=== PATIENT | male | born 1980 | race Caucasian/White ===

== ENCOUNTER 2022-09-24 15:47 | Emergency (ER) | payer OTHER ==
[~2022-09-24] VITALS: Ht 172.7 cm; Wt 72.6 kg
[2022-09-24] MEDS ORDERED: CEPH500 PO (20:15)
== END 2022-09-24 20:45 | disposition home or self-care (01) ==
LOC: ER 15:47
DX: L03.115 Cellulitis of right lower limb (principal)
CPT/HCPCS: A9270